=== PATIENT | female | born 1980 | race American Indian/Alaskan Native ===

== ENCOUNTER 2017-04-04 02:35 | Emergency (ER) | payer MEDICAID ==
[2017-04-04 03:01] VITALS: BMI 31.2
[2017-04-04] MEDS ORDERED: Lactated Ringer's 1,000 ML IV SCH (03:15)
[2017-04-04 03:34] LABS: RBC URINE 1 /hpf (0-3); URINE BACTERIA OCC (<OCC); URINE BILIRUBIN NEGATIVE (NEGATIVE); URINE BLOOD NEGATIVE (NEGATIVE); URINE COLOR YELLOW (YELLOW); URINE GLUCOSE (UA) NEG (Normal); URINE KETONE NEGATIVE (NEGATIVE); URINE LEUKOCYTE ESTERASE NEG Leu/uL (Negative); URINE PROTEIN NEGATIVE (NEGATIVE); URINE UROBILINOGEN 0.2-1.0 mg/dL (0.2-1.0); WBC URINE 1 /hpf (0-5)
--- NOTE | 2017-04-09 23:09 | OBHP ---
Datetime: 04/04/2017 04:31 IP Adm Impression: , intrauterine IP Admit Plan: Observation/Evaluation; Discharge home Admit Comment, IP Provider: 36 y/o @ 33 weeks IUP presents w/ n/v/d and weakness. Patient star akil feeling ill this morning. Patient goes to [facility] in [place] and has scheduled at [facility]. EDC is 05/23/2017 but will have section 1 week before EDC. Patient has had normal . Patient reports positive movements and takes PNVS. Patient denies VB and LOF. Clinic: [place] PMH: none PSH: x1 , hansa ruiz OBHx: x1 SOC: denies smoking, alcohol, and drugs O: CV: RRR Resp: CTA bl Pelvic: closed and intact membranes A: 36 y/o @ 33 weeks IUP presents w/ n/v/d. P: observe and evaluate continuous monitoring IV LR hydration UA neg for protein, blood, nitrates, leukocyte esterase discharge home follow up appt on 04/11/2017 Wisam Correia MD [employer] [facility] ADDENDUM: pt seen _ exmined by me. agree with above assessment and plan. Pelvic Type - PN: Adequate Extremities - PN: Not Done Abdomen - PN: Normal Back - PN: Normal Breast - PN: Not Done Lungs - PN: Normal Heart - PN: Normal Thyroid - PN: Not Done Neurologic - PN: Normal HEENT - PN: Normal General - PN: Normal Membranes, Provider: Intact Comments, ACOG Physical Exam: closed IP Hx Assessment: The History has been Reviewed and is Current EGA AdmitDate IP: 33.0 IP Chief Complaint: Signs/symptoms UTI; Illness; Maternal discomfort Genitourinary Exam: Normal DTRs - PN: Not Done
== END 2017-04-04 04:40 | disposition home or self-care (01) ==
LOC: H.EROB2 02:35
DX: O47.03 False labor before 37 completed weeks of gestation, third trimester (principal); Z3A.33 33 weeks gestation of pregnancy